=== PATIENT | male | born 1955 | race Caucasian/White ===

== ENCOUNTER 2021-12-12 05:59 | Day surgery (SDC) | payer OTHER ==
[~2021-12-12] VITALS: Ht 175.3 cm; Wt 95.3 kg
[2021-12-12] MEDS ORDERED: MIDAZOLAM 5 MG/5 ML VIAL ONE (07:51)
[2021-12-12] MEDS ORDERED: LIDOCAINE 2% 100 MG/5 ML UJET TP ONE ×2 (07:51→07:54)
[2021-12-12] MEDS ORDERED: fentaNYL citrate 0.05 MG/ML VIAL ONE (07:51)
[2021-12-12] MEDS ORDERED: diphenhydrAMINE 50 MG/ML VIAL ONE (07:51)
[2021-12-12] MEDS ORDERED: fentaNYL citrate 0.05 MG/ML VIAL IVP ONE (15:10)
[2021-12-12] MEDS ORDERED: MIDAZOLAM 2 MG/2 ML VIAL IVP ONE (15:10)
== END 2021-12-12 09:30 | disposition home or self-care (01) ==
LOC: MMU 05:59 → MDS 05:59
PROVIDERS: ATTEND Internal Medicine Gastroenterology
DX: Z12.11 Encounter for screening for malignant neoplasm of colon (principal); K63.5 Polyp of colon; F32.9 Major depressive disorder, single episode, unspecified; Z90.49 Acquired absence of other specified parts of digestive tract; Z20.822 Contact with and (suspected) exposure to COVID-19; Z79.899 Other long term (current) drug therapy
CPT/HCPCS: 45380; 45381; 45385; 87426; J2250; J3010; J1200

== ENCOUNTER 2022-01-23 07:42 | Day surgery (SDC) | payer OTHER ==
[~2022-01-23] VITALS: Ht 175.3 cm; Wt 90.7 kg
[2022-01-23] MEDS ORDERED: diphenhydrAMINE 50 MG/ML VIAL ONE (09:36)
[2022-01-23] MEDS ORDERED: MIDAZOLAM 5 MG/5 ML VIAL ONE (09:37)
[2022-01-23] MEDS ORDERED: fentaNYL citrate 0.05 MG/ML VIAL ONE (09:37)
[2022-01-23] MEDS ORDERED: LIDOCAINE 2% 100 MG/5 ML UJET TP ONE (09:37)
[2022-01-23] MEDS ORDERED: MIDAZOLAM 2 MG/2 ML VIAL IVP ONE (12:20)
[2022-01-23] MEDS ORDERED: diphenhydrAMINE 50 MG/ML VIAL IVP ONE (12:20)
[2022-01-23] MEDS ORDERED: fentaNYL citrate 0.05 MG/ML VIAL IVP ONE (12:20)
== END 2022-01-23 11:10 | disposition home or self-care (01) ==
LOC: MMU 07:42 → MDS 07:42
PROVIDERS: ATTEND Internal Medicine Gastroenterology
DX: Z09 Encounter for follow-up examination after completed treatment for conditions other than malignant neoplasm (principal); Z86.010 Personal history of colon polyps; Z90.49 Acquired absence of other specified parts of digestive tract; Z20.822 Contact with and (suspected) exposure to COVID-19
CPT/HCPCS: 45380; 87426; J1200; J2250; J3010